=== PATIENT | female | born 1980 | race Caucasian/White ===

== ENCOUNTER 2020-07-15 19:16 | Inpatient (IN) | payer BC ==
[~2020-07-15] VITALS: Ht 170.2 cm; Wt 83.4 kg
[2020-07-15] MEDS ORDERED: HEPARIN 5,000 UNITS/ML, 1ML SQ ONE (19:30)
[2020-07-15] MEDS ORDERED: ACETAMINOPHEN 325 MG TABLET PO PRN (19:30)
[2020-07-15] MEDS ORDERED: BETAMETHASONE 6 MG/ML, 5ML IM ONE (19:32)
[2020-07-15] MEDS ORDERED: HEPARIN 5,000 UNITS/ML, 1ML ONE (19:33)
[2020-07-15] MEDS: BETAMETHASONE 6 MG/ML, 5ML IM SCH (19:48)
[2020-07-15 19:52] LABS: MEAN CORPUSCULAR HEMOGLOBIN 31.6 pg (27.0-34.8); MEAN CORPUSCULAR HGB CONC 33.5 g/dL (32.4-35.8); MEAN CORPUSCULAR VOLUME 94.2 fL (80-100); MEAN PLATELET VOLUME 9.1 fL (7.4-10.4); PLATELET COUNT 279 x10^3/uL (130-400); RED BLOOD COUNT 4.51 x10^6/uL (3.82-5.3); RED CELL DISTRIBUTION WIDTH 13.8 % (9.6-15.2)
[2020-07-15 20:21] LABS: BASOPHILS # (AUTO) 0.09 x10^3/uL (0-0.1); BASOPHILS % (AUTO) 1 % (0-1); EOSINOPHILS # (AUTO) 0.15 x10^3/uL (0-0.4); EOSINOPHILS % (AUTO) 1 % (1-7); LYMPHOCYTES # (AUTO) 2.77 x10^3/uL (1-3.4); LYMPHOCYTES % (AUTO) 20 % (22-44); MD SCAN; MONOCYTES # (AUTO) 0.83 x10^3/uL (0.2-0.8); MONOCYTES % (AUTO) 6 % (2-9); NEUTROPHILS # (AUTO) 9.87 x10^3/uL (1.8-6.8); NEUTROPHILS % (AUTO) 72 % (42-75)
[2020-07-15] MEDS ORDERED: DOCUSATE 100 MG CAPSULE ONE (20:43)
[2020-07-15] MEDS: DOCUSATE 100 MG CAPSULE PO PRN (20:46)
[2020-07-16 02:27] VITALS: BP 112/72
[2020-07-16] MEDS ORDERED: PREN1TAB60 PO (07:23)
[2020-07-16] MEDS ORDERED: heparin SC (07:23)
[2020-07-16] MEDS ORDERED: benefiber (08:56)
[2020-07-16] MEDS ORDERED: DOCU-131 PO (08:56)
[2020-07-16] MEDS ORDERED: PRENATAL VIT/IRON/FA 1 EACH TABLET PO SCH (09:00)
[2020-07-16] MEDS ORDERED: PRENATAL VIT/IRON/FA 1 EACH TABLET HOMEMEDPO SCH (09:00)
[2020-07-16] MEDS ORDERED: HEPARIN 5,000 UNITS/ML, 1ML ONE ×2 (09:05→21:01)
[2020-07-16] MEDS ORDERED: DOCUSATE 100 MG CAPSULE ONE ×2 (09:07→21:01)
[2020-07-16] MEDS: DOCUSATE 100 MG CAPSULE PO PRN ×2 (09:10→21:11)
[2020-07-16] MEDS: HEPARIN 5,000 UNITS/ML, 1ML SQ SCH ×2 (09:10→21:11)
[2020-07-16] MEDS: BETAMETHASONE 6 MG/ML, 5ML IM SCH (20:00)
[2020-07-16] MEDS: PSYLLIUM PACKET PO PRN (21:11)
[2020-07-17 07:27] VITALS: BP 126/80
[2020-07-17] MEDS ORDERED: HEPARIN 5,000 UNITS/ML, 1ML ONE ×2 (08:24→21:31)
[2020-07-17] MEDS ORDERED: PSYLLIUM PACKET ONE (08:24)
[2020-07-17] MEDS ORDERED: DOCUSATE 100 MG CAPSULE ONE ×2 (08:29→21:31)
[2020-07-17] MEDS: DOCUSATE 100 MG CAPSULE PO PRN ×2 (08:31→21:40)
[2020-07-17] MEDS: PSYLLIUM PACKET PO PRN (08:32)
[2020-07-17] MEDS: HEPARIN 5,000 UNITS/ML, 1ML SQ SCH ×2 (08:34→21:38)
[2020-07-17 19:20] VITALS: BP 119/76
[2020-07-17] MEDS: PRENATAL VIT/IRON/FA 1 EACH TABLET HOMEMEDPO SCH (21:00)
[2020-07-17] MEDS ORDERED: FAMOTIDINE 20 MG TABLET ONE (21:31)
[2020-07-17] MEDS ORDERED: PRENATAL VIT/IRON/FA 1 EACH TABLET ONE (21:31)
[2020-07-18 07:38] VITALS: BP 116/78
[2020-07-18] MEDS ORDERED: PSYLLIUM PACKET ONE (09:23)
[2020-07-18] MEDS ORDERED: HEPARIN 5,000 UNITS/ML, 1ML ONE ×3 (09:23→21:07)
[2020-07-18] MEDS ORDERED: DOCUSATE 100 MG CAPSULE ONE ×2 (09:24→21:07)
[2020-07-18] MEDS: HEPARIN 5,000 UNITS/ML, 1ML SQ SCH ×2 (09:29→21:13)
[2020-07-18] MEDS: PSYLLIUM PACKET PO PRN (09:29)
[2020-07-18] MEDS: DOCUSATE 100 MG CAPSULE PO PRN ×2 (09:29→21:14)
[2020-07-18 19:20] VITALS: BP 138/84
[2020-07-18] MEDS: PRENATAL VIT/IRON/FA 1 EACH TABLET HOMEMEDPO SCH (21:00)
[2020-07-18] MEDS ORDERED: FAMOTIDINE 20 MG TABLET ONE (21:07)
[2020-07-18] MEDS: FAMOTIDINE 20 MG TABLET PO PRN (21:14)
[2020-07-19] MEDS ORDERED: HEPARIN 5,000 UNITS/ML, 1ML ONE ×2 (09:17→21:25)
[2020-07-19] MEDS: HEPARIN 5,000 UNITS/ML, 1ML SQ SCH ×2 (09:28→21:30)
[2020-07-19] MEDS ORDERED: DOCUSATE 100 MG CAPSULE ONE ×2 (09:30→21:24)
[2020-07-19] MEDS ORDERED: PSYLLIUM PACKET ONE ×2 (09:30→21:25)
[2020-07-19] MEDS: PSYLLIUM PACKET PO PRN ×2 (09:32→21:29)
[2020-07-19] MEDS: DOCUSATE 100 MG CAPSULE PO PRN ×2 (09:32→21:29)
[2020-07-19 19:30] VITALS: BP 137/84
[2020-07-19] MEDS ORDERED: FAMOTIDINE 20 MG TABLET ONE (21:25)
[2020-07-19] MEDS: FAMOTIDINE 20 MG TABLET PO PRN (21:30)
[2020-07-19] MEDS: PRENATAL VIT/IRON/FA 1 EACH TABLET HOMEMEDPO SCH (21:34)
[2020-07-20] MEDS ORDERED: PSYLLIUM PACKET ONE ×2 (08:35→21:03)
[2020-07-20] MEDS ORDERED: HEPARIN 5,000 UNITS/ML, 1ML ONE ×2 (08:35→21:02)
[2020-07-20] MEDS ORDERED: DOCUSATE 100 MG CAPSULE ONE ×2 (08:35→21:03)
[2020-07-20] MEDS: DOCUSATE 100 MG CAPSULE PO PRN ×2 (08:43→21:12)
[2020-07-20] MEDS: PSYLLIUM PACKET PO PRN ×2 (08:43→21:12)
[2020-07-20] MEDS: HEPARIN 5,000 UNITS/ML, 1ML SQ SCH ×2 (08:44→21:17)
[2020-07-20 09:00] VITALS: BP 127/76
[2020-07-20] MEDS: PRENATAL VIT/IRON/FA 1 EACH TABLET HOMEMEDPO SCH (21:00)
[2020-07-20 21:10] VITALS: BP 121/74
[2020-07-20] MEDS ORDERED: FAMOTIDINE 20 MG TABLET ONE (21:10)
[2020-07-20] MEDS: FAMOTIDINE 20 MG TABLET PO PRN (21:12)
[2020-07-21 08:10] VITALS: BP 118/78
[2020-07-21] MEDS ORDERED: PRENATAL VIT/IRON/FA 1 EACH TABLET ONE (08:58)
[2020-07-21] MEDS ORDERED: DOCUSATE 100 MG CAPSULE ONE (08:59)
[2020-07-21] MEDS ORDERED: HEPARIN 5,000 UNITS/ML, 1ML ONE (08:59)
[2020-07-21] MEDS: DOCUSATE 100 MG CAPSULE PO PRN (09:05)
[2020-07-21] MEDS: HEPARIN 5,000 UNITS/ML, 1ML SQ SCH ×2 (09:05→21:00)
[2020-07-21] MEDS ORDERED: PSYLLIUM PACKET ONE (09:10)
[2020-07-21] MEDS: PSYLLIUM PACKET PO PRN (09:27)
[2020-07-21] MEDS ORDERED: NEWBORN KIT ONE (16:19)
[2020-07-21] MEDS ORDERED: D5%-LACTATED RINGERS 1,000 ML IV SCH (16:30)
[2020-07-21 16:36] LABS: MEAN CORPUSCULAR HEMOGLOBIN 32.3 pg (27.0-34.8); MEAN CORPUSCULAR HGB CONC 34.1 g/dL (32.4-35.8); MEAN CORPUSCULAR VOLUME 94.8 fL (80-100); MEAN PLATELET VOLUME 9.3 fL (7.4-10.4); PLATELET COUNT 280 x10^3/uL (130-400); RED BLOOD COUNT 4.83 x10^6/uL (3.82-5.3); RED CELL DISTRIBUTION WIDTH 13.7 % (9.6-15.2)
[2020-07-21 16:55] LABS: BASOPHILS # (AUTO) 0.05 x10^3/uL (0-0.1); BASOPHILS % (AUTO) 0 % (0-1); EOSINOPHILS # (AUTO) 0.16 x10^3/uL (0-0.4); EOSINOPHILS % (AUTO) 1 % (1-7); LYMPHOCYTES % (AUTO) 19 % (22-44); MD SCAN; MONOCYTES # (AUTO) 0.85 x10^3/uL (0.2-0.8); MONOCYTES % (AUTO) 6 % (2-9); NEUTROPHILS # (AUTO) 11.53 x10^3/uL (1.8-6.8); NEUTROPHILS % (AUTO) 75 % (42-75)
[2020-07-21] MEDS ORDERED: LACTATED RINGERS 1,000 ML IV SCH (17:59)
[2020-07-21] MEDS ORDERED: METOCLOPRAMIDE 5 MG/ML, 2ML IV ONE (18:00)
[2020-07-21] MEDS ORDERED: LACTATED RINGERS 1,000 ML IVBOLUS ONE (18:00)
[2020-07-21] MEDS: SODIUM CITRATE/CITRIC ACID 30 ML UDC PO ONE ×2 (18:00→20:43)
[2020-07-21] MEDS ORDERED: METOCLOPRAMIDE 5 MG/ML, 2ML ONE (18:01)
[2020-07-21] MEDS ORDERED: OXYTOCIN 30U/ 0.9% NaCL 500ML 500 ML ONE (18:48)
[2020-07-21] MEDS ORDERED: MISOPROSTOL 200 MCG TABLET ONE (19:22)
[2020-07-21] MEDS ORDERED: CEFAZOLIN 1,000 MG ONE ×3 (20:39→20:40)
[2020-07-21] MEDS ORDERED: OXYTOCIN 10 UNITS/ML, 1ML ONE (20:40)
[2020-07-21] MEDS ORDERED: EPINEPHRINE 1 MG/ML, 1ML ONE (20:40)
[2020-07-21] MEDS ORDERED: EPHEDRINE 50 MG/ML, 1ML ONE (20:40)
[2020-07-21] MEDS ORDERED: FENTANYL PF 250 MCG/5ML ONE (20:48)
[2020-07-21] MEDS: PRENATAL VIT/IRON/FA 1 EACH TABLET HOMEMEDPO SCH (21:00)
[2020-07-21] MEDS: LACTATED RINGERS 1,000 ML IV SCH ×2 (22:12→23:29)
[2020-07-21] MEDS ORDERED: ONDANSETRON 2MG/ML, 2ML ONE (22:28)
[2020-07-21] MEDS: ONDANSETRON 2MG/ML, 2ML IV PRN (22:29)
[2020-07-21] MEDS ORDERED: OXYcodone IR 5MG TABLET PO PRN (22:30)
[2020-07-21] MEDS ORDERED: BISACODYL 10 MG SUPP PR PRN (22:30)
[2020-07-21] MEDS ORDERED: MISOPROSTOL 200 MCG TABLET SL PRN (22:30)
[2020-07-21] MEDS: OXYTOCIN 30U/ 0.9% NaCL 500ML 500 ML IV SCH (23:28)
[2020-07-22] MEDS: KETOROLAC 30 MG/1 ML IV SCH ×4 (01:25→19:32)
[2020-07-22 02:30] VITALS: BP 100/64
[2020-07-22] MEDS: ACETAMINOPHEN 325 MG TABLET PO PRN ×4 (03:12→16:30)
[2020-07-22] MEDS: SIMETHICONE 80 MG CHEW TAB PO PRN ×3 (04:32→22:36)
[2020-07-22 05:14] LABS: MEAN CORPUSCULAR HEMOGLOBIN 31.8 pg (27.0-34.8); MEAN CORPUSCULAR HGB CONC 33.7 g/dL (32.4-35.8); MEAN CORPUSCULAR VOLUME 94.3 fL (80-100); MEAN PLATELET VOLUME 9.3 fL (7.4-10.4); PLATELET COUNT 251 x10^3/uL (130-400); RED BLOOD COUNT 4.26 x10^6/uL (3.82-5.3); RED CELL DISTRIBUTION WIDTH 13.7 % (9.6-15.2)
[2020-07-22 05:45] LABS: MD YES
[2020-07-22 05:47] LABS: <PLATELET ESTIMATE> ADEQUATE; <PLT MORPHOLOGY> NORMAL PLT MORPH; <RBC MORPHOLOGY> NORMAL; BAND#(MANUAL) 0.48 x10^3/uL; BANDS%(MANUAL) 2 % (0-7); LYMPH#(MANUAL) 2.64 x10^3/uL (1-3.4); LYMPHS% (MANUAL) 11 % (22-44); MONOS#(MANUAL) 1.92 x10^3/uL (0.3-2.7); MONOS% (MANUAL) 8 % (2-9); SEG#(MANUAL) 18.96 x10^3/uL (1.8-6.8); SEGS% (MANUAL) 79 % (42-75)
[2020-07-22 06:10] VITALS: BP 126/76
[2020-07-22] MEDS: LACTATED RINGERS 1,000 ML IV SCH ×5 (06:12→22:12)
[2020-07-22] MEDS: DOCUSATE 100 MG CAPSULE PO PRN ×2 (07:38→22:36)
[2020-07-22 07:45] VITALS: BP 138/85
[2020-07-22] MEDS: OXYTOCIN 30U/ 0.9% NaCL 500ML 500 ML IV SCH ×2 (08:12→18:12)
[2020-07-22] MEDS: PRENATAL VIT/IRON/FA 1 EACH TABLET PO SCH (10:28)
[2020-07-22] MEDS: OXYcodone/APAP 5/325MG TABLET PO PRN ×2 (10:29→22:37)
[2020-07-22] MEDS: ENOXAPARIN 40 MG/0.4 ML SQ SCH (10:43)
[2020-07-22 12:00] VITALS: BP 127/82
[2020-07-22 16:23] VITALS: BP 128/87
[2020-07-22 19:52] VITALS: BP 115/80
[2020-07-22] MEDS: PRENATAL VIT/IRON/FA 1 EACH TABLET HOMEMEDPO SCH (20:02)
[2020-07-23] MEDS: KETOROLAC 30 MG/1 ML IV SCH ×4 (01:54→19:30)
[2020-07-23] MEDS: ACETAMINOPHEN 325 MG TABLET PO PRN ×4 (02:56→22:09)
[2020-07-23] MEDS: LACTATED RINGERS 1,000 ML IV SCH ×5 (04:12→22:12)
[2020-07-23] MEDS: OXYTOCIN 30U/ 0.9% NaCL 500ML 500 ML IV SCH ×2 (04:12→08:34)
[2020-07-23 07:45] VITALS: BP 120/70
[2020-07-23] MEDS: PRENATAL VIT/IRON/FA 1 EACH TABLET PO SCH (08:00)
[2020-07-23] MEDS: ENOXAPARIN 40 MG/0.4 ML SQ SCH (10:47)
[2020-07-23] MEDS: IBUPROFEN 600 MG TABLET PO PRN ×2 (16:23→22:08)
[2020-07-23 20:55] VITALS: BP 124/80
[2020-07-23] MEDS: PRENATAL VIT/IRON/FA 1 EACH TABLET HOMEMEDPO SCH (21:00)
[2020-07-23] MEDS: DOCUSATE 100 MG CAPSULE PO PRN (22:08)
[2020-07-23] MEDS: SIMETHICONE 80 MG CHEW TAB PO PRN (22:09)
[2020-07-24] MEDS: OXYTOCIN 30U/ 0.9% NaCL 500ML 500 ML IV SCH (00:12)
[2020-07-24] MEDS: LACTATED RINGERS 1,000 ML IV SCH ×2 (00:12→06:12)
[2020-07-24] MEDS: IBUPROFEN 600 MG TABLET PO PRN ×4 (03:58→22:06)
[2020-07-24] MEDS: ACETAMINOPHEN 325 MG TABLET PO PRN ×5 (03:58→22:06)
[2020-07-24 06:01] LABS: CREATININE 0.61 mg/dL (0.55-1.02)
[2020-07-24] MEDS: DOCUSATE 100 MG CAPSULE PO PRN ×2 (07:45→22:06)
[2020-07-24] MEDS: PRENATAL VIT/IRON/FA 1 EACH TABLET PO SCH (09:00)
[2020-07-24 10:20] VITALS: BP 125/87
[2020-07-24] MEDS: ENOXAPARIN 40 MG/0.4 ML SQ SCH (10:29)
[2020-07-24] MEDS: SIMETHICONE 80 MG CHEW TAB PO PRN ×2 (10:37→22:06)
[2020-07-24 20:10] VITALS: BP 123/86
[2020-07-24] MEDS: PRENATAL VIT/IRON/FA 1 EACH TABLET HOMEMEDPO SCH (21:00)
[2020-07-25] MEDS: ACETAMINOPHEN 325 MG TABLET PO PRN ×3 (02:12→15:45)
[2020-07-25] MEDS: IBUPROFEN 600 MG TABLET PO PRN ×3 (04:34→16:30)
[2020-07-25 07:00] VITALS: BP 121/74
[2020-07-25] MEDS: ONDANSETRON 2MG/ML, 2ML IV PRN (07:21)
[2020-07-25] MEDS: DOCUSATE 100 MG CAPSULE PO PRN (08:02)
[2020-07-25] MEDS: PRENATAL VIT/IRON/FA 1 EACH TABLET HOMEMEDPO SCH (08:03)
[2020-07-25] MEDS: SIMETHICONE 80 MG CHEW TAB PO PRN (08:03)
[2020-07-25] MEDS: PRENATAL VIT/IRON/FA 1 EACH TABLET PO SCH ×2 (08:06→08:07)
[2020-07-25] MEDS: ENOXAPARIN 40 MG/0.4 ML SQ SCH (10:50)
[2020-07-25] MEDS: PSYLLIUM PACKET PO PRN (10:51)
[2020-07-25] MEDS ORDERED: DOCU-131 PO (15:56)
[2020-07-25] MEDS ORDERED: ENOX40SY4 SQ (15:56)
[2020-07-25] MEDS ORDERED: OXYC-302 PO (15:56)
[2020-07-25] MEDS ORDERED: IBUP-1222 PO (15:56)
== END 2020-07-25 23:02 | disposition home or self-care (01) | DRG 787 ==
LOC: LDIP 19:16 → 2NW 07-22 01:00
PROVIDERS: ADMIT Obstetrics & Gynecology Maternal & Fetal Medicine; ATTEND Obstetrics & Gynecology Maternal & Fetal Medicine
PROC: 10D00Z1 Extraction of Products of Conception, Low, Open Approach (ICD-10-PCS; principal; 2020-07-21)
DX: O36.5930 Maternal care for other known or suspected poor fetal growth, third trimester, not applicable or unspecified (principal); O99.12 Other diseases of the blood and blood-forming organs and certain disorders involving the immune mechanism complicating childbirth; D68.51 Activated protein C resistance; Z20.828 Contact with and (suspected) exposure to other viral communicable diseases; O76 Abnormality in fetal heart rate and rhythm complicating labor and delivery; Z37.0 Single live birth; Z3A.35 35 weeks gestation of pregnancy; Z79.82 Long term (current) use of aspirin
CPT/HCPCS: 36415; 87806; J7121; 82565; 82803; 85025; 85730; 86592; 86762; 86850; 86900; 87081; 87340; 87635; 88307; G0378; J0171; J0690; J0702; J1644; J1650; J1885; J2405; J3010; G0475; J2590; J2765; J7120